=== PATIENT | female | born 1995 | race Caucasian/White ===

== ENCOUNTER → 2020-10-20 08:42 | Outpatient (CLI) | payer OTHER, SELFPAY ==
[2020-10-20 09:50] LABS: Hematocrit 33.5 % (36-46); Mean Corpuscular HGB Conc 32.8 % (30-36); Mean Corpuscular Hemoglobin 27.6 PG (26-34); Mean Corpuscular Volume 84.1 fL (80-100); Platelet Count 404 X10^3/uL (150-400); Red Blood Cell Count 3.98 X10^6/uL (4.0-5.2)
[2020-10-20 10:11] LABS: Alanine Aminotransferase 21 IU/L (<35); Albumin 4.3 g/dL (3.5-5.0); Albumin Globulin Ratio 1.3 (1.0-2.8); Alkaline Phosphatase 106 U/L (38-126); Aspartate Aminotransferase 46 IU/L (14-36); BUN Creatinine Ratio 12.9 (6-22); Bilirubin Total 0.3 mg/dL (0.2-1.3); Blood Urea Nitrogen 8 mg/dL (7-17); Calcium 9.9 mg/dL (8.4-10.2); Carbon Dioxide 26 mmol/L (22-32); Chloride 103 mmol/L (98-107); Cholesterol 201 mg/dL (140-199); Estimated Glomerular Filt Rate > 60.0 mL/min (>60); Globulin 3.3 g/dL (1.7-4.1); Glucose 96 mg/dL (70-100); HDL Cholesterol 42 mg/dL (40-60); HEMOLYSIS < 15 (0-50); LDL Cholesterol Calculated 124 mg/dL (<100); Potassium 4.1 mmol/L (3.4-5.1); Sodium 139 mmol/L (137-145); Total Protein 7.6 g/dL (6.3-8.2); Triglycerides 177 mg/dL (35-150)
== END ==
PROVIDERS: PCP Nurse Practitioner Family; Referring Provider Nurse Practitioner Family; Visit Provider Nurse Practitioner Family
DX: Z00.00 Encounter for general adult medical examination without abnormal findings (principal); Z13.6 Encounter for screening for cardiovascular disorders
CPT/HCPCS: 36415; 80053; 80061; 85027

== ENCOUNTER → 2021-12-24 10:33 | Outpatient (CLI) | payer OTHER, SELFPAY | PROVIDERS: PCP Nurse Practitioner Family; Visit Provider Nurse Practitioner Family | DX: J02.9 Acute pharyngitis, unspecified (principal) | CPT/HCPCS: 87070; 87077 ==

== ENCOUNTER → 2022-02-18 12:05 | Outpatient (CLI) | payer OTHER, SELFPAY ==
[2022-02-18 13:49] LABS: Add Manual Diff / Slide Review NO; Basophils Absolute Auto 0 /uL (0-100); Basophils Percent Auto 0.2 % (0-2); Eosinophils Absolute Auto 100 /uL (0-450); Eosinophils Percent Auto 0.6 % (2-4); Hematocrit 31.2 % (36-46); Hemoglobin 10.6 g/dL (12.0-16.0); Lymphocytes Absolute Auto 2100 /uL (1100-4500); Lymphocytes Percent Auto 18.6 % (25-40); Mean Corpuscular HGB Conc 33.9 % (30-36); Mean Corpuscular Hemoglobin 27.7 PG (26-34); Mean Corpuscular Volume 81.8 fL (80-100); Monocytes Absolute Auto 700 /uL (0-900); Monocytes Percent Auto 6.2 % (3-14); Neutrophils Absolute Auto 8400 /uL (1500-7000); Neutrophils Percent Auto 74.4 % (50-75); Platelet Count 366 X10^3/uL (150-400); Red Blood Cell Count 3.82 X10^6/uL (4.0-5.2); Red Cell Distribution Width 14.9 % (11.6-14.8); White Blood Cell Count 11.3 X10^3/uL (4.5-11.0)
[2022-02-18 14:11] LABS: Appearance Urine UA CLEAR; Bilirubin Urine UA NEGATIVE (NEGATIVE); Color Urine UA YELLOW; Glucose Urine UA NEGATIVE (Negative); Ketones Urine UA 1+ (NEGATIVE); Leukocyte Esterase Urine UA TRACE (NEGATIVE); Nitrite Urine UA NEGATIVE (Negative); Occult Blood Urine UA TRACE-LYSED (Negative); Protein Urine UA NEGATIVE (Negative); Specific Gravity Urine UA 1.025 (1.000-1.035); Urobilinogen Urine UA 0.2 E.U./dL (0.2)
[2022-02-18 14:20] LABS: Amorphous Sediment Urine 1+; Bacteria Urine Occasional (0-1); RBC Urine 0-1/HPF (0-5/HPF); WBC Urine 0-1/HPF (0-5/HPF)
[2022-02-18 17:39] LABS: HIV 1 & 2 Ab/Ag 4th Gen Combo NEGATIVE (NEGATIVE); Hep C Virus Ab w/Reflex Quant NEGATIVE s/c (NEGATIVE); Hepatitis B Surface Antigen NEGATIVE s/c (NEGATIVE)
[2022-02-19 06:29] LABS: RPR Screen Non Reactive (Non Reactive)
[2022-02-19 07:18] LABS: Varicella IgG Antibody <135 index (Immune >165)
== END ==
PROVIDERS: PCP Registered Nurse Diabetes Educator; Referring Provider Family Medicine; Visit Provider Family Medicine
DX: Z34.01 Encounter for supervision of normal first pregnancy, first trimester (principal)
CPT/HCPCS: 36415; 80055; 81003; 81015; 86787; 86803; 86850; 86900; 86901; 87086; 87389

== ENCOUNTER → 2022-04-17 11:00 | Outpatient (CLI) | payer OTHER, SELFPAY ==
[2022-04-19 19:53] LABS: AFP, Serum 31.8 ng/mL (.); Calc Gestational Age EDD (.); Estriol, Free 1.43 ng/mL (.); Inhibin A, Dimeric 181.35 pg/mL (.); Inhibin A, MoM 1.15 (.); Maternal Ethnicity Caucasian (.); Maternal Weight 165 lbs (.); Number of Fetuses No (.); OSBR Risk 1 IN 10000 (.); Results Report (.); Test Results *Screen Negative* (.); hCG, MoM 1.29 (.); hCG, Serum 34114 mIU/mL (.)
== END ==
PROVIDERS: PCP Registered Nurse Diabetes Educator; Referring Provider Family Medicine; Visit Provider Family Medicine
DX: Z34.01 Encounter for supervision of normal first pregnancy, first trimester (principal)
CPT/HCPCS: 36415; 82105; 82677; 84702; 86336

== ENCOUNTER → 2022-04-26 10:29 | Outpatient (CLI) | payer OTHER, SELFPAY ==
--- NOTE | 2022-04-26 10:30 | DI.US.S_ITS ---
PROCEDURE: US OB >= 14 WEEKS FETUS INDICATIONS: ANATOMY SCREEN OUTSIDE/PRIOR DATING DATA: Last menstrual period (LMP): 12/05/2021. LMP-based estimated date of delivery (GARY): 09/11/2022. First dating scan (date and location): 04/26/2022. Estimated date of delivery (GARY) from first dating scan: 09/09/2022. TECHNIQUE: Real-time scanning was performed of the fetus, with image documentation and biometric measurements. COMPARISON: None. FINDINGS: General: A single living intrauterine gestation is present. Presentation: Cephalic. Placenta: Placental position is anterior , without previa. Amniotic fluid index: 11.1 cm, normal range is 5-24 cm. Single deepest vertical pocket is 4.0 cm. heart rate: 140 beats per minute. Maternal cervical canal: 4.3 cm long. Normal lower limit is 2.5 cm. biometrics: Biparietal diameter: 4.8 cm, 20 week 3 day Head circumference: 18.3 cm, 20 week 5 day Abdominal circumference: 16.0 cm, 21 week 1 day Femur length: 3.2 cm, 20 week 0 day Clinically estimated gestational age: 20 week 2 day Composite gestational age from present scan: 20 week 4 day Estimated weight and percentile: 366 g, 65th percentile Anatomic survey: Neuro: Ventricles are non-dilated at less than 10 mm. Cisterna magna is normal at 3-11 mm. Cerebellum is normal in size and morphology. Nuchal skin fold: Normal at less than 6 mm between 14-21 weeks gestational age. Face: Nose and lips, facial profile are normal. Spine: No evidence for spina bifida. Heart: 4-chambered heart is present, with normal ventricular outflow tracts. Diaphragm: Not well seen Stomach: Left-sided stomach is present. Kidneys: No hydronephrosis. Normal is less than 5 mm in 2nd trimester, less than 7 mm in 3rd trimester. Cord: 3-vessel cord has orthotopic insertion. Bladder: Normal in size. Extremities: All 4 extremities identified. Feet and ankles are not well visualized bilaterally IMPRESSION: Single live intrauterine consistent with a 20 week 4 day by current ultrasound Approved by: Benjamín Zepeda M.D. on 04/26/2022 at 14:01
== END ==
PROVIDERS: PCP Registered Nurse Diabetes Educator; Referring Provider Family Medicine; Visit Provider Family Medicine
DX: Z34.92 Encounter for supervision of normal pregnancy, unspecified, second trimester (principal); Z3A.20 20 weeks gestation of pregnancy
CPT/HCPCS: 76811

== ENCOUNTER → 2022-11-18 10:22 | Outpatient (CLI) | payer OTHER, SELFPAY ==
[2022-11-18 10:38] LABS: Add Manual Diff / Slide Review NO; Basophils Absolute Auto 100 /uL (0-100); Basophils Percent Auto 0.9 % (0-2); Eosinophils Absolute Auto 100 /uL (0-450); Eosinophils Percent Auto 1.1 % (2-4); Hematocrit 36.7 % (36-46); Hemoglobin 12.7 g/dL (12.0-16.0); Lymphocytes Absolute Auto 2600 /uL (1100-4500); Mean Corpuscular HGB Conc 34.6 % (30-36); Mean Corpuscular Hemoglobin 29.5 PG (26-34); Mean Corpuscular Volume 85.2 fL (80-100); Monocytes Absolute Auto 600 /uL (0-900); Neutrophils Absolute Auto 7200 /uL (1500-7000); Platelet Count 389 X10^3/uL (150-400); Red Blood Cell Count 4.31 X10^6/uL (4.0-5.2); Red Cell Distribution Width 14.4 % (11.6-14.8); White Blood Cell Count 10.7 X10^3/uL (4.5-11.0)
[2022-11-18 11:05] LABS: Alanine Aminotransferase 31 IU/L (<35); Albumin 4.4 g/dL (3.5-5.0); Albumin Globulin Ratio 1.2 (1.0-2.8); Alkaline Phosphatase 87 U/L (38-126); Aspartate Aminotransferase 27 IU/L (14-36); Bilirubin Total 0.6 mg/dL (0.2-1.3); Blood Urea Nitrogen 12 mg/dL (7-17); Calcium 9.4 mg/dL (8.4-10.2); Carbon Dioxide 24 mmol/L (22-32); Chloride 104 mmol/L (98-107); Estimated Glomerular Filt Rate > 60 mL/min (>60); Globulin 3.6 g/dL (1.7-4.1); Glucose 98 mg/dL (70-100); HEMOLYSIS < 15 (0-50); Potassium 4.1 mmol/L (3.4-5.1); Sodium 138 mmol/L (137-145)
[2022-11-18 11:45] LABS: TSH w/ Reflex to FT4 1.58 uIU/mL (0.47-4.68)
== END ==
PROVIDERS: PCP Registered Nurse Diabetes Educator; Referring Provider Registered Nurse Diabetes Educator; Visit Provider Registered Nurse Diabetes Educator
DX: R11.0 Nausea (principal); R42 Dizziness and giddiness
CPT/HCPCS: 36415; 80053; 84443; 85025

== ENCOUNTER 2023-01-07 08:15 | Outpatient (RCR) | payer OTHER, SELFPAY ==
--- NOTE | 2023-01-01 08:13 | PT.OIE ---
Current Diagnoses Stress incontinence (female) (male) (01/07/23) History of uterine scar from previous surgery (01/07/23) Past Medical History (Last Reviewed 12/16/22 @ 18:22 by KIMBERLY Thompson) Anemia (2008) Asthma Elevated AST (SGOT) Encounter for routine gynecological examination (10/24/20) Encounter for wellness examination in adult (10/24/20) Mild persistent asthma Mixed hyperlipidemia (10/2020) Oral contraception initial prescription Visit Care Team Role Provider Type KIMBERLY Thompson Attending Provider Advanced Wildlife Biology Technician Family Provider Primary Care Provider Referring Provider Specialty: Medical Address: [address] [place] [address] Email: [email or web address] Physical Therapy Initial Evaluation PT-OP-A Visit Information Start: 01/01/23 08:15 Freq: Status: Active Protocol: Document 01/01/23 08:17 AMB (Rec: 01/01/23 08:56 AMB [id number]) Out-Patient Physical Therapy Visit Information Visit Information Visit Type Initial Evaluation Visit Start Time 08:15 Visit Stop Time 09:00 Total Visit Minutes 45 Visit Number 1 PT-OP-B Current Condition Start: 01/01/23 08:15 Freq: Status: Active Protocol: Document 01/01/23 08:17 AMB (Rec: 01/01/23 08:56 AMB [id number]) Current Condition History of Current Condition Onset Date 09/13/22 Current Complaints JADEN/pelvic pain History of Current Condition Tightness around , was having some dyspareunia but that has seemingly resolved. Incontinence with strenous movement. Hemorrhage after . Extended pushing for 6 hours. Does have back pain with holding baby. Personal Factors Other Personal Factors That May Effect back pain Therapy/Recovery PT-OP-C Subjective Start: 01/01/23 08:15 Freq: Status: Active Protocol: Document 01/01/23 15:52 AMB (Rec: 01/01/23 15:52 AMB [id number]) Patient Questionnaires Pelvic Pain and Urgency/Frequency Patient Symptom Scale Pelvic Pain Score 8 PT-OP-I Pelvic Floor Start: 01/01/23 08:15 Freq: Status: Active Protocol: Document 01/01/23 15:51 AMB (Rec: 01/01/23 15:51 AMB [id number]) Pelvic Floor Assessment Urine Pelvic Floor Surgery No Leakage Size Small Leakage Cause Exercise Nocturia 2 Prolapse Prolapse Comments no prolapse visualized Perineal Descent Resting Absent Bearing Absent Contraction Ability Manual Muscle Testing Left 2 Manual Muscle Testing Right 2 Manual Muscle Testing Anterior 2 Manual Muscle Testing Posterior 2 Comments Pelvic Floor Comments 2 finger width diastasis above naval. PT-OP-T Assessment and Plan Start: 01/01/23 08:15 Freq: Status: Active Protocol: Document 01/01/23 16:00 AMB (Rec: 01/06/23 16:01 AMB [id number]) Physical Therapy Assessment Rehab Potential Rehabilitation Potential Good Evaluation Complexity Number of Personal Factors/Comorbidities 0 Clinical Presentation at Evaluation Stable Impairments Impairments Strength Goals Two Impairment Diastasis recti Short Term Goal (STG) Andie will be independent with a program for her c- section scar. STG Duration 4 weeks Alf Goal (LTG) Andie will be independent with a HEP to LTG Duration 5 weeks One Impairment Stress urinary incontinence Short Term Goal (STG) Andie will be independent with a pelvic floor strengthening program. STG Duration 4 weeks Cable Driller Goal (LTG) Andie will be return to exercise without leaking. LTG Duration 5 weeks Assessment Summary Assessment Andie attends physical therapy with improving dyspareunia, but continued sensitivity over her scar and some stress urinary incontinence with return to exercise. She will benefit from physical therapy to manage her stress urinary incontinence, diastasis recti as it relates to her back pain . She is moving ([email or web address]) so her time in physical therapy will be short. Physical Therapy Plan Frequency and Duration Frequency of Treatment 1x/Week Duration of treatment (weeks) 5 Plan of Care Start Date 01/01/23 Plan of Care End Date 02/05/23 Therapeutic Interventions Therapeutic Interventions Home Exercise Program,Manual Therapy,Neuromuscular Re- education,Self-Care/Home Management,Therapeutic Activities,Therapeutic Exercises Modalities Biofeedback,Cold Pack/Ice Massage,Electric Stimulation Next Visit Focus/Plan Next Note Type Treatment Note
--- NOTE | 2023-01-01 08:14 | PT.OPPOC ---
Physical, Occupational & Speech Therapy At [facility] Current Diagnoses Stress incontinence (female) (male) (01/07/23) History of uterine scar from previous surgery (01/07/23) Visit Care Team Role Provider Type KIMBERLY Thompson Attending Provider Advanced Origination Specialist Family Provider Primary Care Provider Referring Provider Specialty: Medical Address: [address] [place] [address], [facility] Email: [email or web address] Plan Of Care PT-OP-T Assessment and Plan Start: 01/01/23 08:15 Freq: Status: Active Protocol: Document 01/01/23 16:00 AMB (Rec: 01/06/23 16:01 AMB [id number]) Physical Therapy Assessment Rehab Potential Rehabilitation Potential Good Evaluation Complexity Number of Personal Factors/Comorbidities 0 Clinical Presentation at Evaluation Stable Impairments Impairments Strength Goals Two Impairment Diastasis recti Short Term Goal (STG) Andie will be independent with a program for her c- section scar. STG Duration 4 weeks Intellectual Property Counsel Goal (LTG) Andie will be independent with a HEP to LTG Duration 5 weeks One Impairment Stress urinary incontinence Short Term Goal (STG) Andie will be independent with a pelvic floor strengthening program. STG Duration 4 weeks Intellectual Property Counsel Goal (LTG) Andie will be return to exercise without leaking. LTG Duration 5 weeks Assessment Summary Assessment Andie attends physical therapy with improving dyspareunia, but continued sensitivity over her scar and some stress urinary incontinence with return to exercise. She will benefit from physical therapy to manage her stress urinary incontinence, diastasis recti as it relates to her back pain . She is moving ([employer]) so her time in physical therapy will be short. Physical Therapy Plan Frequency and Duration Frequency of Treatment 1x/Week Duration of treatment (weeks) 5 Plan of Care Start Date 01/01/23 Plan of Care End Date 02/05/23 Therapeutic Interventions Therapeutic Interventions Home Exercise Program,Manual Therapy,Neuromuscular Re- education,Self-Care/Home Management,Therapeutic Activities,Therapeutic Exercises Modalities Biofeedback,Cold Pack/Ice Massage,Electric Stimulation Next Visit Focus/Plan Next Note Type Treatment Note Plan of Care Dates Plan of Care Start Date 01/01/23 Plan of Care End Date 02/05/23 Electronically Signed by: Sera Amador, PT 01/07/23 0814 If you are in agreement with this Plan of Care, please return a signed and dated copy. I have reviewed this Plan of Care and certify that the skilled therapy services above are required to meet the patient?s needs. Physician Signature Date Printed Name and Credentials Clinical Instructor Signature Printed Name and Credentials
--- NOTE | 2023-01-07 15:31 | PT.OTN ---
Current Diagnoses Stress incontinence (female) (male) (01/07/23) History of uterine scar from previous surgery (01/07/23) Physical Therapy Treatment Note PT-OP-A Visit Information Start: 01/01/23 08:15 Freq: Status: Active Protocol: Document 01/07/23 08:15 AMB (Rec: 01/07/23 09:04 AMB [id number]) Out-Patient Physical Therapy Visit Information Visit Information Visit Type Treatment Note Visit Start Time 08:15 Visit Stop Time 09:00 Total Visit Minutes 45 Visit Number 2 PT-OP-B Current Condition Start: 01/01/23 08:15 Freq: Status: Active Protocol: Document 01/01/23 08:17 AMB (Rec: 01/01/23 08:56 AMB [id number]) Current Condition History of Current Condition Onset Date 09/13/22 Current Complaints JADEN/pelvic pain History of Current Condition Tightness around , was having some dyspareunia but that has seemingly resolved. Incontinence with strenous movement. Hemorrhage after . Extended pushing for 6 hours. Does have back pain with holding baby. Personal Factors Other Personal Factors That May Effect back pain Therapy/Recovery PT-OP-C Subjective Start: 01/01/23 08:15 Freq: Status: Active Protocol: Document 01/07/23 08:15 AMB (Rec: 01/07/23 09:04 AMB [id number]) OP-PT Subjective Patient Comments Patient Comments Pt notices fatigue with kegels . Wants to return to weight lifting. PT-OP-I Pelvic Floor Start: 01/01/23 08:15 Freq: Status: Active Protocol: Document 01/01/23 15:51 AMB (Rec: 01/01/23 15:51 AMB [id number]) Pelvic Floor Assessment Urine Pelvic Floor Surgery No Leakage Size Small Leakage Cause Exercise Nocturia 2 Prolapse Prolapse Comments no prolapse visualized Perineal Descent Resting Absent Bearing Absent Contraction Ability Manual Muscle Testing Left 2 Manual Muscle Testing Right 2 Manual Muscle Testing Anterior 2 Manual Muscle Testing Posterior 2 Comments Pelvic Floor Comments 2 finger width diastasis above naval. PT-OP-Q Treatments Start: 01/01/23 08:15 Freq: Status: Active Protocol: Document 01/07/23 10:04 AMB (Rec: 01/07/23 10:05 AMB [id number]) Therapeutic Exercises Supine Exercises supine march Reps/Minutes x10 Comments to progress to SLR and double leg as able hip add iso Reps/Minutes 5x5 Comments with breath Standing Exercises lunge Reps/Minutes 10 1 Standing Exercise Name sit to stand PT-OP-T Assessment and Plan Start: 01/01/23 08:15 Freq: Status: Active Protocol: Document 01/07/23 08:15 AMB (Rec: 01/07/23 09:04 AMB [id number]) Physical Therapy Assessment Goals Two Impairment Diastasis recti Short Term Goal (STG) Andie will be independent with a program for her c- section scar. STG Duration [facility] Goal (LTG) Andie will be independent with a HEP to strengthen her abdominal muscles. LTG Duration MET One Impairment Stress urinary incontinence Short Term Goal (STG) Andie will be independent with a pelvic floor strengthening program. STG Duration [facility] Goal (LTG) Andie will be return to exercise without leaking. LTG Duration 5 weeks Assessment Summary Assessment Andie was given a HEP to progress her pelvic floor and abdominal strength. Given taping resources for her diastasis. Encouraged to continue with progressive weight training for the next 6 months, if sx remain to seek care at that point, if sx worsen to seek care earlier. Physical Therapy Plan Frequency and Duration Frequency of Treatment 1x/Week Duration of treatment (weeks) 5 Plan of Care Start Date 01/01/23 Plan of Care End Date 02/05/23 Discharge Physical Therapy Discharge Reasons Patient Request Discharge Comments Pt is moving, is [place]
== END 2023-02-21 13:28 ==
LOC: PHYS 08:15
PROVIDERS: Family Provider Registered Nurse Diabetes Educator; PCP Registered Nurse Diabetes Educator; Referring Provider Registered Nurse Diabetes Educator; Visit Provider Registered Nurse Diabetes Educator
DX: N39.3 Stress incontinence (female) (male) (principal); Z98.891 History of uterine scar from previous surgery
CPT/HCPCS: 97110; 97161